=== PATIENT | female | born 1965 | race Caucasian/White ===

== ENCOUNTER 2021-11-15 21:52 | Observation (INO) | payer OTHER ==
[~2021-11-15] VITALS: Ht 160 cm; Wt 73.2 kg
[2021-11-15] MEDS ORDERED: TRAZ-252 PO (22:11)
[2021-11-15] MEDS ORDERED: ZOLO100T PO (22:11)
[2021-11-15] MEDS ORDERED: NS 1,000 ML IV ONE ×2 (22:15→23:35)
[2021-11-15 22:19] LABS: BASO % 0.3 % (0.0-1.0); EOS # 0.1 10^3/uL (0.0-0.5); EOS % 2.4 % (0.0-3.0); HEMATOCRIT 41.3 % (36.0-47.0); HEMOGLOBIN 13.8 g/dl (12.0-15.5); LYMPH # 2.4 10^3/uL (1.5-5.0); LYMPH % 39.8 % (24.0-44.0); MEAN CORPUSCULAR HEMOGLOBIN 30.9 pg (27.0-33.0); MEAN CORPUSCULAR HGB CONC 33.4 g/dl (32.0-36.5); MEAN CORPUSCULAR VOLUME 92.6 fl (80.0-96.0); MONO # 0.5 10^3/uL (0.0-0.8); MONO % 8.6 % (2.0-8.0); NEUTROPHILS # 2.9 10^3/uL (1.5-8.5); NEUTROPHILS % 48.7 % (36.0-66.0); PLATELET COUNT, AUTOMATED 215 10^3/uL (150-450); RED BLOOD COUNT 4.46 10^6/uL (4.00-5.40)
[2021-11-15 22:46] LABS: HCG, SERUM QUALITATIVE NEGATIVE (NEGATIVE)
[2021-11-15 22:55] LABS: ACETAMINOPHEN LEVEL < 2.0 UG/ML (10.0-30.0); ALBUMIN 3.8 GM/DL (3.2-5.2); ALT/SGPT 19 U/L (12-78); BILIRUBIN,DIRECT 0.1 MG/DL (0.0-0.2); BILIRUBIN,TOTAL 0.4 MG/DL (0.2-1.0); BLOOD UREA NITROGEN 7 MG/DL (7-18); CARBON DIOXIDE LEVEL 25 MEQ/L (21-32); CHLORIDE LEVEL 112 MEQ/L (98-107); CREATININE FOR GFR 0.61 MG/DL (0.55-1.30); ETHYL ALCOHOL (ETHANOL) 0.183 % (0.000-0.010); GLOMERULAR FILTRATION RATE > 60.0 (>51); GLUCOSE, FASTING 84 MG/DL (70-100); POTASSIUM SERUM 3.8 MEQ/L (3.5-5.1); SALICYLATE LEVEL 2.7 MG/DL (5.0-30.0); SODIUM LEVEL 145 MEQ/L (136-145); TOTAL PROTEIN 6.8 GM/DL (6.4-8.2)
[2021-11-15] MEDS ORDERED: HOME MED LIST COMPLETE! XX SCH (23:45)
[2021-11-16 00:12] LABS: RSV AMPLIFICATION NEGATIVE (NEGATIVE)
[2021-11-16] MEDS ORDERED: NS 1,000 ML IV SCH (01:40)
[2021-11-16] MEDS ORDERED: THIAMINE 200MG 2ML VIAL IM ONE (01:40)
[2021-11-16] MEDS ORDERED: NS 1,000 ML IV ONE (01:55)
[2021-11-16 04:03] LABS: AMPHETAMINES LEVEL URINE NEGATIVE (NEGATIVE); BARBITURATES URINE NEGATIVE (NEGATIVE); BENZODIAZEPINES URINE NEGATIVE (NEGATIVE); CANNABINOIDS URINE NEGATIVE (NEGATIVE); COCAINE METABOLITE URINE NEGATIVE (NEGATIVE); METHADONE URINE NEGATIVE (NEGATIVE); OPIATES URINE NEGATIVE (NEGATIVE); PHENCYCLIDINE URINE NEGATIVE (NEGATIVE)
[2021-11-16] MEDS: DULoxetine 20 MG CAP (CYMBALTA) PO SCH ×2 (09:00→20:29)
[2021-11-16] MEDS: MULTIVITAMINS/MINERALS THERAP 1 TAB PO SCH (09:00)
[2021-11-16] MEDS: FOLIC ACID 1 MG TAB PO SCH (09:00)
[2021-11-16 10:41] LABS: BLOOD UREA NITROGEN 6 MG/DL (7-18); CALCIUM LEVEL 7.6 MG/DL (8.5-10.1); CARBON DIOXIDE LEVEL 24 MEQ/L (21-32); CHLORIDE LEVEL 119 MEQ/L (98-107); CREATININE FOR GFR 0.54 MG/DL (0.55-1.30); GLOMERULAR FILTRATION RATE > 60.0 (>51); GLUCOSE, FASTING 67 MG/DL (70-100); MAGNESIUM LEVEL 2.1 MG/DL (1.8-2.4); POTASSIUM SERUM 4.3 MEQ/L (3.5-5.1); SODIUM LEVEL 148 MEQ/L (136-145)
[2021-11-16 16:52] VITALS: BP 92/51
[2021-11-16 18:00] VITALS: BP 103/59
[2021-11-16 20:00] VITALS: BP 106/61
[2021-11-16] MEDS: RAMELTEON 8 MG TAB (ROZEREM) PO SCH (20:29)
[2021-11-17] VITALS: BP 101/63
[2021-11-17 06:00] VITALS: BP 102/60
[2021-11-17 08:00] VITALS: BP 102/60
[2021-11-17] MEDS: FOLIC ACID 1 MG TAB PO SCH (08:46)
[2021-11-17] MEDS: THIAMINE 100 MG TAB PO SCH (08:46)
[2021-11-17] MEDS: MULTIVITAMINS/MINERALS THERAP 1 TAB PO SCH (08:46)
[2021-11-17] MEDS: DULoxetine 20 MG CAP (CYMBALTA) PO SCH ×2 (08:46→21:19)
[2021-11-17 14:00] VITALS: BP 102/60
[2021-11-17] MEDS: RAMELTEON 8 MG TAB (ROZEREM) PO SCH (21:20)
[2021-11-17 22:00] VITALS: BP 103/59
[2021-11-18 06:00] VITALS: BP 102/67
[2021-11-18] MEDS ORDERED: VITMTA PO (08:46)
[2021-11-18] MEDS ORDERED: FOLI1TAB11 PO (08:46)
[2021-11-18] MEDS ORDERED: RAME8TAB2 PO (08:46)
[2021-11-18] MEDS ORDERED: THIA100TA PO (08:46)
[2021-11-18] MEDS ORDERED: CYMB1CAP4 PO (08:46)
[2021-11-18] MEDS: THIAMINE 100 MG TAB PO SCH (09:37)
[2021-11-18] MEDS: DULoxetine 20 MG CAP (CYMBALTA) PO SCH (09:37)
[2021-11-18] MEDS: MULTIVITAMINS/MINERALS THERAP 1 TAB PO SCH (09:37)
[2021-11-18] MEDS: FOLIC ACID 1 MG TAB PO SCH (09:37)
[2021-11-18 14:00] VITALS: BP 102/67
== END 2021-11-18 15:41 ==
LOC: M ED 21:52 → M ED INP 21:53 → ENRESERV 11-16 15:23 → M MSPAV 11-16 16:02
PROVIDERS: ADMIT Internal Medicine; ATTEND Internal Medicine
DX: T14.91XA Suicide attempt, initial encounter (principal); T43.212A Poisoning by selective serotonin and norepinephrine reuptake inhibitors, intentional self-harm, initial encounter; T43.222A Poisoning by selective serotonin reuptake inhibitors, intentional self-harm, initial encounter; T51.0X2A Toxic effect of ethanol, intentional self-harm, initial encounter; F10.220 Alcohol dependence with intoxication, uncomplicated; R94.31 Abnormal electrocardiogram [ECG] [EKG]; I95.9 Hypotension, unspecified; F32.A Depression, unspecified; F41.9 Anxiety disorder, unspecified; M54.9 Dorsalgia, unspecified; M41.9 Scoliosis, unspecified; Z91.51 Personal history of suicidal behavior; Z81.8 Family history of other mental and behavioral disorders; F17.210 Nicotine dependence, cigarettes, uncomplicated; Z79.899 Other long term (current) drug therapy; Z88.1 Allergy status to other antibiotic agents
CPT/HCPCS: 36415; 80048; 80076; 80143; 80307; 82077; 82550; 83735; 84443; 84703; 85025; 87631; 93005; 93041; 94760; 96360; 96361; 96372; 99285; J3411

== ENCOUNTER 2021-11-18 15:14 | Inpatient (IN) | payer OTHER ==
[~2021-11-18] VITALS: Ht 160 cm; Wt 68.0 kg
[~2021-11-18 15:14] MED LIST: CYMB1CAP4 PO; FOLI1TAB11 PO; RAME8TAB2 PO; THIA100TA PO; TRAZ-252 PO; VITMTA PO; ZOLO100T PO
[2021-11-18] MEDS ORDERED: MAALOX 30 ML SUSP *UDC PO PRN (15:15)
[2021-11-18] MEDS ORDERED: LORazepam 2 MG TAB PO PRN (15:15)
[2021-11-18] MEDS ORDERED: MOM 30ML SUSPENSION UDC PO PRN (15:15)
[2021-11-18] MEDS ORDERED: ACETAMINOPHEN TAB 650MG DOSE (2X325MG) PO PRN (15:15)
[2021-11-18] MEDS ORDERED: traZODone 50 MG TAB PO PRN (15:15)
[2021-11-18 15:48] VITALS: BP 117/59
[2021-11-18] MEDS ORDERED: HOME MED LIST COMPLETE! XX SCH (16:05)
[2021-11-18] MEDS: THIAMINE 100 MG TAB PO SCH (16:25)
[2021-11-18] MEDS: RAMELTEON 8 MG TAB (ROZEREM) PO SCH (20:24)
[2021-11-18] MEDS: DULoxetine 20 MG CAP (CYMBALTA) PO SCH (20:24)
[2021-11-18 21:13] VITALS: BP 103/66
[2021-11-19 07:17] VITALS: BP 110/57
[2021-11-19] MEDS: THIAMINE 100 MG TAB PO SCH ×2 (08:10→20:46)
[2021-11-19] MEDS: DULoxetine 20 MG CAP (CYMBALTA) PO SCH (08:10)
[2021-11-19] MEDS ORDERED: FOLIC ACID 1 MG TAB PO SCH (09:00)
[2021-11-19] MEDS ORDERED: MULTIVITAMINS/MINERALS THERAP 1 TAB PO SCH (09:00)
[2021-11-19] MEDS ORDERED: DULoxetine 20 MG CAP (CYMBALTA) PO ONE (10:45)
[2021-11-19 14:23] VITALS: BP 124/74
[2021-11-19 19:25] VITALS: BP 108/63
[2021-11-19] MEDS: RAMELTEON 8 MG TAB (ROZEREM) PO SCH (20:46)
[2021-11-19 21:33] VITALS: BP 122/76
[2021-11-20 06:59] VITALS: BP 106/62
[2021-11-20] MEDS ORDERED: RAME8TAB2 PO (07:47)
[2021-11-20] MEDS ORDERED: CYMB1CAP4 PO (07:47)
[2021-11-20] MEDS ORDERED: DULoxetine 20 MG CAP (CYMBALTA) PO SCH (09:00)
== END 2021-11-20 11:28 | disposition home or self-care (01) | DRG 751 ==
LOC: M PSY 15:42
PROVIDERS: ADMIT Student in an Organized Health Care Education/Training Program; ATTEND Student in an Organized Health Care Education/Training Program
DX: F33.1 Major depressive disorder, recurrent, moderate (principal); F10.10 Alcohol abuse, uncomplicated; Z88.0 Allergy status to penicillin; Z79.899 Other long term (current) drug therapy